=== PATIENT | male | born 1965 | race Caucasian/White ===

== ENCOUNTER 2016-06-04 18:17 | Emergency (ER) | payer OTHER ==
[~2016-06-04] VITALS: Ht 177.8 cm; Wt 95.0 kg
[2016-06-04 18:23] VITALS: BP 161/103; PULSE 101; RESP 16; O2SAT 100
--- NOTE | 2016-06-04 18:35 | ED.REPORT ---
HPI-Chest Pain 40 and Over Date of Service Jun 04, 2016 ED Provider: MD Rosie This is a 50 year old male with a history of DM, hypertension, hyperlipidemia presenting to the emergency department complaining of chest pain that began 2 months ago but worsened 3 days ago. Describes intermittent pressure that radiates to the left shoulder at times. Described as heavy and associated with cough and dyspnea. Reports mild chest pain at this time. PCP visit one week ago , diagnosed with pneumonia, treated with antibiotics. Saw his PCP today, told to visit ED due to abnormal ECG. Denies fever, chills, abdominal pain, constipation, nausea, vomiting, headache, dizziness, diaphoresis. CP not exertional in character. Denies recent surgeries or prolonged periods of immobilization. Nursing Notes Stated Complaint: CHEST PAIN,SENT FROM [facility] ABNORMAL EKG Chief Complaint: Chest Pain Nursing Notes Reviewed: Yes Allergies: Coded Allergies: cyclobenzaprine (Verified Allergy, Severe, convulsions, 06/04/16) General Time Seen by MD: 18:34 Chief Complaint Chest pain Hx Obtained From: Patient Arrived By: Walk-in Sudden in Onset?: Yes Onset Occurred: 3 days ago Symptom Duration: Since onset Severity: Current: Mild Pertinent Negative: Pt denies other symptoms Recent Healthcare: No recent hospitalization, Recent doctor visit Similar Sx Previous: No Past Medical History Past Medical History Reports: Diabetes mellitus, Hyperlipidemia, Hypertension Past Surgical History Denies Ambulatory Status Independent Review of Systems Constitutional: Denies: Chills, Fever Respiratory: Reports: Non-productive cough, Shortness of breath Cardiovascular: Reports: Chest pain, Denies: Dyspnea on exertion GI: Denies: Abdominal pain, Nausea, Vomiting Musculoskeletal: Denies: Back pain Skin: Denies Diaphoresis Neurologic: Denies: Dizziness, Headache Complete sys rev & neg: except as marked. Physical Exam Initial Vital Signs Vital Signs (First) Date Time Temp Pulse Resp B/P Pulse Ox O2 Delivery O2 Flow Rate FiO2 06/04/16 18:23 35.8 101 16 161/103 100 Room Air Initial VS: Reviewed Head / Eyes: Atraumatic, Normocephalic, PERRL ENT: Mucous membranes moist, Conjunctiva normal, No scleral icterus Neck: Supple, Non-tender, Full range of motion Extremities: Vascular intact, Neuro intact, No swelling, No tenderness Skin: Warm, Dry, No cyanosis Neurologic: Alert, Oriented, Nonfocal Psychiatric: Mood/affect normal, Behavior normal, Normal thought content General/Constitutional: Awake, Alert, No acute distress, Well appearing Respiratory / Chest: Breath sounds = bilat, No respiratory distress, No wheezing, No stridor, No chest tenderness Lungs slightly coarse Cardiovascular: Heart rate NL, Regular rhythm, Heart sounds NL, No murmurs, Peripheral circulation NL, Pulses = bilaterally, No gross BP differential Abdomen: Soft, Non-tender, McBurney's non-tender, No guarding, No rebound, BS normoactive, No distention, No hernia, No palpable mass Interpretation & Diagnostics CHEST X-RAY IMPRESSION: No acute pulmonary process. Dictated by: Lilian Miranda M.D. on 06/04/2016 at 19:06 Approved by: Lilian Miranda M.D. on 06/04/2016 at 19:06 Lab Results Interpretation Result Diagram: 06/04/16 1840 06/04/16 1840 Test 06/04/16 18:40 06/04/16 20:45 White Blood Count 5.4th/mm3 (3.8-10.1) Red Blood Count 5.20mil/mm3 (4.40-5.80) Hemoglobin 15.3g/dL (13.8-17.2) Hematocrit 43.4% (41.0-50.0) Mean Corpuscular Volume 83.5fL (81-100) Mean Corpuscular Hemoglobin 29.4pg (27.0-35.0) Mean Corpuscular Hemoglobin Concent 35.3% (32.0-37.0) Red Cell Distribution Width 11.8% (12.3-15.4) Platelet Count 183bil/L (150-400) Neutrophils (%) (Auto) 49.2% (40-74) Lymphocytes (%) (Auto) 41.0% (14-46) Monocytes (%) (Auto) 7.4% (4-12) Eosinophils (%) (Auto) 2.0% (0-5) Basophils (%) (Auto) 0.4% (0-3) Sodium Level 133mEq/L (134-144) Potassium Level 3.7mEq/L (3.5-5.2) Chloride Level 92mEq/L (97-108) Carbon Dioxide Level 28mmol/L (18-29) Blood Urea Nitrogen 19mg/dL (6-24) Creatinine 0.89mg/dL (0.76-1.27) Estimat Glomerular Filtration Rate 97mL/min (>59) Glucose Level 422mg/dL (60-99) Calcium Level 9.5mg/dL (8.5-10.1) Magnesium Level 2.0mg/dL (1.6-2.6) Total Bilirubin 0.3mg/dL (0.0-1.2) Aspartate Amino Transf (AST/SGOT) 21U/L (0-50) Alanine Aminotransferase (ALT/SGPT) 32U/L (0-44) Alkaline Phosphatase 58U/L (25-150) Total Protein 7.7g/dL (6.4-8.4) Albumin 4.5g/dL (3.4-5.0) Troponin T 0.010ug/L (0.0-0.011) ECG Interpretation ECG Interpretation: NSR at a rate of [address] No [address] segment elevation No t-wave abnormalities When compared to prior earlier today, no acute changes present. Time: 18:49 Interpreted by: ED physician X-Ray Chest Interpretation Chest Xray Interpretation: IMPRESSION: No acute pulmonary process. Dictated by: Lilian Miranda M.D. on 06/04/2016 at 19:06 Approved by: Lilian Miranda M.D. on 06/04/2016 at 19:06 Re-Eval/Medical Decision Med Decision/Clinical Course This is a 50 year old male with a history of DM, hypertension, hyperlipidemia presenting to the emergency department complaining of chest pain that began 2 months ago but worsened 3 days ago. Describes intermittent pressure that radiates to the left shoulder at times. Described as heavy and associated with cough and dyspnea. Reports mild chest pain at this time. PCP visit one week ago , diagnosed with pneumonia, treated with antibiotics. Saw his PCP today, told to visit ED due to abnormal ECG. Denies fever, chills, abdominal pain, constipation, nausea, vomiting, headache, dizziness, diaphoresis. CP not exertional in character. Denies recent surgeries or prolonged periods of immobilization. Aspirin given upon arrival. Here in the emergency department the patient is afebrile stable vital signs in no apparent distress. Examination reveals coarse breath sounds with scattered expiratory wheezing. Patient was treated with a DuoNeb and reported significant symptomatic improvement. EKG was obtained and interpreted by myself as documented above. CXR: Obtained, reviewed and interpreted by myself shows no evidence of acute infiltrates, effusions or pneumothorax. Cardiac and mediastinal silhouette normal. No bony or soft tissue abnormalities. Laboratory studies notable as below: CBC unremarkable CMP unremarkable Troponin negative 2 History this patient is somewhat vague though he attributes all of his symptoms to recent respiratory infection and an association with coughing. He has responded well to a DuoNeb treatment has been provided with an albuterol inhaler with spacer. While he does have significant cardiac risk factors he has negative troponin x2 and does not desire admission for further cardiac risk stratification at this time. Given his response to bronchodilators and the fact that he is feeling quite a bit better with relatively reassuring EKG I feel that he is appropriate for outpatient stress test. He is chest pain-free at this time. He will call his primary care physician tomorrow to make arrangements for outpatient cardiac risk stratification. Follow-up and return precautions were reviewed in detail and he is discharged in good condition. Time of Eval: 21:03 Re-Evaluation/Progress Note: Mild pain relief. Discussed normal lab results and plan for repeat troponin, pt understands and agrees with plan, all questions addressed . Counseled Regarding: Diagnosis, Lab results, Need for follow-up, When/why to return to ED Discharge & Departure Primary Impression: Chest pain Chest pain type: unspecified Qualified Code: R07.9 - Chest pain, unspecified Additional Impressions: Cough Bronchitis Hyperglycemia History of diabetes mellitus History of hypertension Disposition: Home Discharge Condition All VS Reviewed: Yes Condition: Stable Patient Instructions: Chest Pain (ED) Additional Instructions: Thank you for seeking care at emergency room. It is difficult for us to make definitive diagnoses in the ED but we believe that you are experiencing chest pain. Use albuterol inhaler with the spacer, every 2 hours or as needed. Our primary goal today in the ED was to evaluate you for any life-threatening conditions. Your evaluation was reassuring. You should follow-up with your primary doctor, call tomorrow to schedule an appointment for further evaluation and referral for outpatient stress test. You should return to the ED immediately if you develop fevers, vomiting, cough, shortness of breath, chest pain, lightheadedness, weakness or any other concerning signs or symptoms. Thank you for letting us partake in your care today. Referrals: Beryl Kelley (PCP) Scribe Attestation Portions of this note were transcribed by Mg Chapa. I, Dr. Velez personally performed the history, physical exam and medical decision-making; I reviewed and confirmed the accuracy of the information in the transcribed note. Signed by: johnnie Diaz. 06/04/2016, 23:30. Yeison Velez MD Jun 04, 2016 18:35 MG CHAPA Jun 04, 2016 18:49
[2016-06-04 18:59] LABS: BASOPHILS % (AUTO) 0.4 % (0-3); MONOCYTES % (AUTO) 7.4 % (4-12); Mean Corpuscular Hemoglobin 29.4 pg (27.0-35.0); Mean Corpuscular Volume 83.5 fL (81-100); NEUTROPHILS % (AUTO) 49.2 % (40-74); Platelet Count 183 bil/L (150-400)
--- NOTE | 2016-06-04 19:09 | DRSVH ---
PROCEDURE: X-RAY CHEST ONE VIEW, PORTABLE ([id number]) INDICATIONS: CHEST PAIN TECHNIQUE: One view of the chest was acquired. COMPARISON: None. FINDINGS: Surgical changes and devices: None. Lungs and pleura: No pleural effusions or pneumothorax. Lungs are clear. Mediastinum: Mediastinal contours appear normal. Heart size is normal. Bones and chest wall: No suspicious bony lesions. Overlying soft tissues appear unremarkable. IMPRESSION: No acute pulmonary process. Dictated by: Lilian Miranda M.D. on 06/04/2016 at 19:06 Approved by: Lilian Miranda M.D. on 06/04/2016 at 19:06
[2016-06-04] MEDS ORDERED: Albuterol-Ipratropium 3 mL Inhalation Solution NEB ONE (19:15)
[2016-06-04 19:17] LABS: TROPONIN T < 0.010 ug/L (0.0-0.011)
[2016-06-04 19:28] VITALS: PULSE 94; RESP 12; O2SAT 99
[2016-06-04 19:40] VITALS: BP 127/77; PULSE 96; RESP 12; O2SAT 95
[2016-06-04 21:00] VITALS: BP 117/73; PULSE 89; RESP 15; O2SAT 97
[2016-06-04] MEDS ORDERED: Albuterol HFA 60 Puff 8 Gm Inhaler INHALATION PRN (21:05)
[2016-06-04 21:42] VITALS: BP 120/63; PULSE 90; RESP 16; O2SAT 98
[2016-06-04] MEDS ORDERED: Albuterol HFA 60 Puff 8 Gm Inhaler INHALATION SCH ×3 (21:45)
[2016-06-04 21:48] VITALS: BP 120/63; PULSE 90; RESP 16; O2SAT 98
== END 2016-06-04 21:57 | disposition home or self-care (01) ==
LOC: SED 18:17
DX: R07.9 Chest pain, unspecified (principal); R05 Cough; J40 Bronchitis, not specified as acute or chronic; E11.65 Type 2 diabetes mellitus with hyperglycemia; I10 Essential (primary) hypertension; E78.5 Hyperlipidemia, unspecified; Z88.8 Allergy status to other drugs, medicaments and biological substances
CPT/HCPCS: 36415; 71010; 80053; 83735; 84484; 85025; 93005; 94664; 99285; J7620